=== PATIENT | female | born 1945 | race Asian ===

== ENCOUNTER 2019-07-06 14:33 | Emergency (ER) | payer MEDICARE, OTHER ==
[~2019-07-06] VITALS: Ht 152.4 cm; Wt 59.0 kg
[~2019-07-06 14:33] MED LIST: ASPI81CH43 PO; ATOR20TA50 PO; DONE5TAB31 PO; ESCI10TA53 PO
[2019-07-06 14:59] LABS: Basophils # (auto) 0.1 uL; Basophils % (auto) 0.6 % (0.0-2.0); Eosinophils # (auto) 0.1 uL; Eosinophils % (auto) 0.7 % (0.0-7.0); Hematocrit 37.4 % (36.0-46.0); Hemoglobin 12.7 g/dL (12.2-16.2); Lymphocytes # (auto) 0.9 uL; Lymphocytes % (auto) 9.8 % (10.0-50.0); Mean Corpuscular Hemoglobin 30.9 pg (28.0-32.0); Mean Corpuscular Hgb Conc. 33.8 g/dL (32.0-36.0); Mean Corpuscular Volume 91.5 fL (80.0-100.0); Monocytes # (auto) 0.8 uL; Monocytes % (auto) 8.5 % (0.0-12.0); Neutrophils # (auto) 7.2 uL; Neutrophils % (auto) 80.4 % (37.0-80.0); Platelet Count (auto) 162 10^3/uL (140-450); Red Blood Cells 4.09 10^6/uL (4.0-5.20); Red Cell Distribution Width 12.8 % (11.8-14.3)
[2019-07-06 15:22] LABS: Albumin 3.2 g/dL (3.4-5.0); BUN/Creatinine Ratio 17.7; Calcium 8.1 mg/dL (8.5-10.1); Potassium 4.7 mmol/L (3.5-5.1)
[2019-07-06 15:24] LABS: Bilirubin, Total 0.5 mg/dL (0.2-1.0); Total Protein 6.2 g/dL (6.4-8.2)
[2019-07-06 17:41] VITALS: BP 106/49
[2019-07-06 17:57] LABS: Urine Bacteria NONE SEEN /hpf (None Seen); Urine Blood Negative /uL (Negative); Urine Specific Gravity 1.017 (1.001-1.035); Urine WBC 3 /hpf (0 - 5)
== END 2019-07-06 18:36 | disposition home or self-care (01) ==
LOC: EDBD 14:33 → ER 14:33 → EDSEX 14:33 → ER 18:21
DX: R55 Syncope and collapse (principal); F03.90 Unspecified dementia, unspecified severity, without behavioral disturbance, psychotic disturbance, mood disturbance, and anxiety; N39.0 Urinary tract infection, site not specified
CPT/HCPCS: 36415; 71045; 80053; 81001; 85025; 93005

== ENCOUNTER 2023-08-02 23:40 | Inpatient (IN) | payer OTHER ==
[~2023-08-02] VITALS: Ht 157.5 cm; Wt 45.1 kg
[~2023-08-02 23:40] MED LIST changes: -DONE5TAB31 PO; +DONE5TAB80 PO; -ESCI10TA53 PO; +ESCI1TAB36 PO
[2023-08-03] VITALS (8 sets, daily range): BP systolic 101–129; BP diastolic 30–60; PULSE 58–82; RESP 12–18; TEMP 36.6; O2SAT 90–96
[2023-08-03] MEDS ORDERED: ACETAMINOPHEN 325 MG TAB PO PRN (01:15)
[2023-08-03] MEDS: D5W/SOD CHL 0.45% 1,000 ML IV SCH ×2 (01:15→14:35)
[2023-08-03] MEDS ORDERED: HYDROcodone-ACET 5/325MG TAB PO PRN (01:15)
[2023-08-03] MEDS ORDERED: hydrALAZINE HCL 10 MG TAB PO PRN (01:15)
[2023-08-03] MEDS ORDERED: MORPHINE SULFATE INJ 2 MG/ml SYRG IV PRN (01:15)
[2023-08-03] MEDS ORDERED: ONDANSETRON HCL 4 MG/2 ML VIAL IV PRN ×3 (01:15→15:15)
[2023-08-03] MEDS ORDERED: LOPE2CAP15 PO (02:32)
[2023-08-03] MEDS ORDERED: MAGN400S25 PO (02:32)
[2023-08-03] MEDS ORDERED: ACET1CAP14 PO (02:32)
[2023-08-03] MEDS ORDERED: HYDR-4902 PO (02:32)
[2023-08-03 06:36] LABS: Basophils # (auto) 0 10 ^3/uL (0-0.2); Basophils % (auto) 0.2 % (0.0-2.0); Eosinophils # (auto) 0 10 ^3/uL (0-0.8); Eosinophils % (auto) 0.1 % (0.0-7.0); Hematocrit 36.2 % (36.0-46.0); Hemoglobin 12.1 g/dL (12.2-16.2); Lymphocytes # (auto) 1.1 10 ^3/uL (0.4-5.4); Lymphocytes % (auto) 10.1 % (10.0-50.0); Mean Corpuscular Hemoglobin 31.7 pg (28.0-32.0); Mean Corpuscular Hgb Conc. 33.5 g/dL (32.0-36.0); Mean Corpuscular Volume 94.6 fL (80.0-100.0); Monocytes # (auto) 0.8 10 ^3/uL (0-1.3); Monocytes % (auto) 7.3 % (0.0-12.0); Neutrophils # (auto) 8.8 10 ^3/uL (1.6-8.6); Neutrophils % (auto) 82.3 % (37.0-80.0); Red Blood Cells 3.83 10^6/uL (4.0-5.20); Red Cell Distribution Width 13.7 % (11.8-14.3); White Blood Cell 10.7 10^3/uL (4.4-10.8)
[2023-08-03 06:37] LABS: Anion Gap 8 (5-15); Calcium 8.7 mg/dL (8.7-10.4); Carbon Dioxide 26 mmol/L (20-30); Chloride 106 mmol/L (98-107); Potassium 3.8 mmol/L (3.5-5.1); Sodium 140 mmol/L (136-145)
[2023-08-03 06:43] LABS: BUN/Creatinine Ratio 28.3 (10.0-20.0); Blood Urea Nitrogen 17 mg/dL (9-23); Glucose 139 mg/dL (74-106)
[2023-08-03 07:03] LABS: Prothrombin Time 10.5 sec (9.3-11.8)
[2023-08-03] MEDS: ENOXAPARIN SOD 40 MG/0.4 ML SYRINGE SC SCH (09:40)
[2023-08-03] MEDS ORDERED: PANTOPRAZOLE 40 MG/10 ML VIAL INJ IV SCH (10:00)
[2023-08-03] MEDS ORDERED: KETOROLAC TROMETH 60MG/2ML VIAL ONE (12:13)
[2023-08-03] MEDS ORDERED: VANCOMYCIN HCL 1000 MG VL ONE (12:13)
[2023-08-03] MEDS ORDERED: TRANEXAMIC ACID 20 ML ONE (12:15)
[2023-08-03] MEDS ORDERED: ceFAZolin 1GM/50ML 50 ML IV ONE (12:47)
[2023-08-03] MEDS ORDERED: fentaNYL CITRATE 100 MCG/2 ML VL ONE (13:05)
[2023-08-03] MEDS ORDERED: MIDAZOLAM HCL 2MG/2ML 2ml VIAL (1mg/ml) ONE (13:05)
[2023-08-03] MEDS ORDERED: PROPOFOL 10 MG/ML 20 ML IV ONE (13:49)
[2023-08-03] MEDS: ceFAZolin 1GM/50ML 50 ML IV SCH (21:00)
[2023-08-03] MEDS: DOCUSATE SOD 100 MG CAP PO SCH (22:00)
[2023-08-04] MEDS: D5W/SOD CHL 0.45% 1,000 ML IV SCH ×2 (03:55→17:15)
[2023-08-04] MEDS: ceFAZolin 1GM/50ML 50 ML IV SCH (03:57)
[2023-08-04 05:00] VITALS: BP 115/55; PULSE 78; RESP 18; O2SAT 95
[2023-08-04 06:33] LABS: Calcium 8.5 mg/dL (8.7-10.4); Chloride 105 mmol/L (98-107); Potassium 3.7 mmol/L (3.5-5.1); Sodium 138 mmol/L (136-145)
[2023-08-04 06:34] LABS: Anion Gap 7 (5-15); Basophils # (auto) 0 10 ^3/uL (0-0.2); Basophils % (auto) 0.2 % (0.0-2.0); Carbon Dioxide 26 mmol/L (20-30); Eosinophils # (auto) 0 10 ^3/uL (0-0.8); Eosinophils % (auto) 0.1 % (0.0-7.0); Hematocrit 31.7 % (36.0-46.0); Hemoglobin 10.6 g/dL (12.2-16.2); Lymphocytes # (auto) 0.8 10 ^3/uL (0.4-5.4); Lymphocytes % (auto) 7.7 % (10.0-50.0); Mean Corpuscular Hemoglobin 31.6 pg (28.0-32.0); Mean Corpuscular Hgb Conc. 33.5 g/dL (32.0-36.0); Mean Corpuscular Volume 94.2 fL (80.0-100.0); Monocytes # (auto) 1.1 10 ^3/uL (0-1.3); Monocytes % (auto) 10.2 % (0.0-12.0); Neutrophils # (auto) 8.9 10 ^3/uL (1.6-8.6); Neutrophils % (auto) 81.8 % (37.0-80.0); Red Blood Cells 3.37 10^6/uL (4.0-5.20); Red Cell Distribution Width 13.3 % (11.8-14.3); White Blood Cell 10.8 10^3/uL (4.4-10.8)
[2023-08-04 06:39] LABS: BUN/Creatinine Ratio 25.9 (10.0-20.0); Blood Urea Nitrogen 14 mg/dL (9-23); Glucose 145 mg/dL (74-106)
[2023-08-04 08:00] VITALS: PULSE 68; PULSE 71; RESP 19; O2SAT 91
[2023-08-04 09:00] VITALS: BP 114/97; PULSE 76; RESP 16; TEMP 97.9; O2SAT 97
[2023-08-04] MEDS: DOCUSATE SOD 100 MG CAP PO SCH ×2 (09:43→22:00)
[2023-08-04] MEDS: ENOXAPARIN SOD 40 MG/0.4 ML SYRINGE SC SCH (09:43)
[2023-08-04 13:00] VITALS: BP 115/67; PULSE 76; RESP 16; TEMP 98.1; O2SAT 95
[2023-08-04 19:30] VITALS: PULSE 65; RESP 16; O2SAT 97
[2023-08-04 21:58] VITALS: BP 106/45; PULSE 67; RESP 16; TEMP 97.9; O2SAT 97
[2023-08-05] VITALS (7 sets, daily range): BP systolic 91–121; BP diastolic 40–59; PULSE 63–70; RESP 14–18; TEMP 97.9–98.9; O2SAT 92–97
[2023-08-05 07:12] LABS: Hematocrit 31.2 % (36.0-46.0); Hemoglobin 10.2 g/dL (12.2-16.2)
[2023-08-05] MEDS: ENOXAPARIN SOD 40 MG/0.4 ML SYRINGE SC SCH (11:00)
[2023-08-05] MEDS: DOCUSATE SOD 100 MG CAP PO SCH ×2 (11:00→22:00)
[2023-08-05] MEDS: D5W/SOD CHL 0.45% 1,000 ML IV SCH (12:00)
[2023-08-06 05:00] VITALS: BP 99/57; PULSE 70; RESP 14; TEMP 98.1; O2SAT 93
[2023-08-06 07:02] LABS: Hematocrit 29.4 % (36.0-46.0); Hemoglobin 9.7 g/dL (12.2-16.2)
[2023-08-06 08:00] VITALS: PULSE 55; RESP 16
[2023-08-06 08:55] VITALS: BP 109/56; PULSE 58; RESP 16; TEMP 97.8; O2SAT 95
[2023-08-06] MEDS: DOCUSATE SOD 100 MG CAP PO SCH ×2 (10:38→21:49)
[2023-08-06] MEDS: ENOXAPARIN SOD 40 MG/0.4 ML SYRINGE SC SCH (10:39)
[2023-08-06 13:00] VITALS: BP 110/54; PULSE 67; RESP 16; TEMP 98.1; O2SAT 97
[2023-08-06 20:00] VITALS: PULSE 55
[2023-08-07 04:42] VITALS: BP 116/60; PULSE 62; RESP 16; TEMP 97.9; O2SAT 95
[2023-08-07 08:00] VITALS: PULSE 64; RESP 16
[2023-08-07 09:00] VITALS: BP 110/58; PULSE 65; RESP 18; TEMP 97.8; O2SAT 93
[2023-08-07] MEDS ORDERED: ASPirin-EC 81 mg tab PO SCH (10:00)
[2023-08-07] MEDS: DOCUSATE SOD 100 MG CAP PO SCH (10:00)
[2023-08-07 13:00] VITALS: BP 114/54; PULSE 68; RESP 18; TEMP 97.7; O2SAT 94
[2023-08-07 14:09] LABS: COVID19 ANTIGEN SOFIA FIA NEGATIVE (NEGATIVE)
== END 2023-08-07 17:00 | DRG 522 ==
LOC: UNDOADMIN 08-03 01:00 → TELE-WESTW 08-03 01:00 → UNDOADMIN 08-03 01:12 → TELE-WESTW 08-03 01:12
PROVIDERS: ADMIT Nurse Practitioner Family; ATTEND Nurse Practitioner Family
PROC: 0SRR0JZ Replacement of Right Hip Joint, Femoral Surface with Synthetic Substitute, Open Approach (ICD-10-PCS; principal; 2023-08-03 13:37)
DX: S72.001A Fracture of unspecified part of neck of right femur, initial encounter for closed fracture (principal); E03.9 Hypothyroidism, unspecified; F02.80 Dementia in other diseases classified elsewhere, unspecified severity, without behavioral disturbance, psychotic disturbance, mood disturbance, and anxiety; G20.A1 Parkinson's disease without dyskinesia, without mention of fluctuations; Y93.39 Activity, other involving climbing, rappelling and jumping off; F32.A Depression, unspecified; W18.39XA Other fall on same level, initial encounter; Y92.128 Other place in nursing home as the place of occurrence of the external cause; Y99.8 Other external cause status
CPT/HCPCS: 36415; 71045; 73502; 80048; 85014; 85018; 85025; 85610; 87081; 87426; 97110; 97116; 97163; 97530; A4565; C9113; G0378; J0690; J1885; J2250; J2704; J7042